=== PATIENT | female | born 1975 | race African-American/Black ===

== ENCOUNTER 2017-12-04 16:38 | Emergency (ER) | payer OTHER ==
[2017-12-04 16:50] VITALS: BP 136/92; PULSE 92; TEMP 98.7; BMI 33.1
[2017-12-04] MEDS ORDERED: IBUPROFEN 400 MG TABLET (FP) PO ONE ×2 (17:25→17:27)
--- NOTE | 2017-12-04 17:26 | PDOC ---
History of Present Illness - General Chief Complaint: Headache Stated Complaint: HEADACHE Time Seen by Provider: 12/04/17 16:57 - History of Present Illness Initial Comments: 12/04/17 17:39 Chief complaint: Headache History of present illness: Recurrent headaches for the past few days, bandlike frontal, not present upon awakening but develop during the day. Admits increased stress. Patient has not taken any medication because "I do not like to take pills". Review of systems: Denies other associated symptoms, neurological or otherwise, including fever/chills, sore throat, cough, chest pain, shortness of breath, abdominal pain, nausea, vomiting, diarrhea, visual or focal neurologic symptoms , unsteadiness of gait. No urinary tract symptoms or abnormal vaginal bleeding or discharge. Denies a possibility of Past medical history: Hypothyroidism on Synthroid. Otherwise no significant medical or surgical problems Social/family history: Patient works in a [employer], is exposed to considerable stress both at work and at home with family. Denies drugs, alcohol, or tobacco. Fully active and without disability. No family history of neurological, cardiac disease, or diabetes. Physical exam: Alert and oriented 3, moderately obese, no acute distress, cheerful and cooperative Afebrile, vital signs normal PERRLA 4 mm, fundi benign with sharp disc margins and good central venous pulsations, no hemorrhages or exudates, no AV nicking. ENT clear. No sinus tenderness Neck supple without bruit mass or nodes. Chest clear CV regular without murmur or gallop Abdomen benign Neurological C2 to 12 intact. Strength full and symmetric. No focal sensory or motor deficits. Gait stable and unimpaired Skin clear, no rash, adequate turgor with mucous membranes Extremities no CCE Impression: Tension headaches, likely due to stress/anxiety. Has not taken any analgesics because of resistance to taking pills, no sign of serious neurologic or infectious disease. Plan: Analgesics, stress reduction techniques discussed, referral to neurologist if no improvement. Fully ambulatory and in no significant pain or other distress upon discharge with to follow-up as recommended. Past History - Past Medical History Allergies/Adverse Reactions: Allergies Allergy/AdvReac Type Severity Reaction Status Date / Time No Known Allergies Allergy Verified 12/04/17 16:45 Home Medications: Ambulatory Orders Ibuprofen 800 mg PO TID PRN #20 tablet 12/04/17 Levothyroxine [Synthroid -] 75 mcg PO DAILY 12/04/17 COPD: No Thyroid Disease: Yes Other medical history: OVARIAN CYSTS - Suicide/Smoking/Psychosocial Hx Smoking History: Never smoked Hx Alcohol Use: No Drug/Substance Use Hx: No Substance Use Type: None *Physical Exam - Vital Signs Last Vital Signs Temp Pulse Resp BP Pulse Ox 98.7 F 92 H 15 136/92 100 12/04/17 16:45 12/04/17 16:45 12/04/17 16:45 12/04/17 16:45 12/04/17 16:45 *DC/Admit/Observation/Transfer Diagnosis at time of Disposition: Headache Qualifiers: Headache type: tension-type Headache chronicity pattern: acute headache Intractability: not intractable Qualified Code(s): G44.209 - Tension-type headache, unspecified, not intractable - Discharge Dispostion Disposition: HOME Condition at time of disposition: Improved Admit: No - Prescriptions Prescriptions: Ibuprofen 800 mg PO TID PRN #20 tablet PRN Reason: Headache - Referrals Referrals: Gregorio Mitchell DO [Staff Physician] - - Patient Instructions Printed Discharge Instructions: DI for Headache Additional Instructions: Rest, fluids, ibuprofen. See neurologist if there is no improvement. Return to ER if symptoms worsen - Post Discharge Activity Forms/Work/School Notes: Back to Work
== END 2017-12-04 18:43 | disposition home or self-care (01) ==
LOC: FER 16:38
DX: G44.209 Tension-type headache, unspecified, not intractable (principal); E07.9 Disorder of thyroid, unspecified
CPT/HCPCS: 99281-25

== ENCOUNTER 2020-08-15 11:11 | Day surgery (SDC) | payer OTHER ==
[2020-08-08 15:16] VITALS: BMI 32.8
[2020-08-15 12:08] VITALS: TEMP 98.7
[2020-08-15] MEDS ORDERED: CEFAZOLIN 1 GM/D5W 1 GM/50 ML BAG IVPB ONE (12:29)
[2020-08-15] MEDS ORDERED: PROPOFOL 20 ML ONE ×2 (12:31→13:42)
[2020-08-15] MEDS ORDERED: MIDAZOLAM HCL 2 MG/2 ML SINGLE DOSE VIAL ONE (12:32)
[2020-08-15] MEDS ORDERED: DEXAMETHASONE SOD PHOSPHATE 4 MG/1 ML VIAL ONE (12:52)
[2020-08-15] MEDS ORDERED: BUPIVACAINE HCL/PF 0.25% (2.5MG/ML) 10 ML VIAL ONE (12:52)
[2020-08-15] MEDS ORDERED: LIDOCAINE HCL 2% (20ML MULTI-DOSE VIAL) ONE (12:52)
[2020-08-15] MEDS ORDERED: DEXAMETHASONE SOD PHOSPHATE/PF 10 MG/ML SDV ONE (12:53)
--- OUTSIDE RECORDS SUMMARY | 2020-08-15 13:15 | XMS ---
:1975 [facility] Care Team Providers Name Role Phone MELODY ENCINAS Unavailable Unavailable MATIAS HUBBARD Unavailable Unavailable KAN BLACK Unavailable Unavailable TEO GARCÍA, [id number] Unavailable Unavailable Veronica Taylor Unavailable Unavailable Veronica Taylor Unavailable Unavailable FÁTIMA PACHECO Unavailable Unavailable DONITA TONY Unavailable Unavailable JACQUES PRINCESS Unavailable Unavailable Re-disclosure Warning The records that you are about to access may contain information from federally- assisted alcohol or drug abuse programs. If such information is present, then the following federally mandated warning applies: This information has been disclosed to you from records protected by federal confidentiality rules (42 CFR part 2). The federal rules prohibit you from making any further disclosure of this information unless further disclosure is expressly permitted by the written consent of the person to whom it pertains or as otherwise permitted by 42 CFR part 2. A general authorization for the release of medical or other information is NOT sufficient for this purpose. The Federal rules restrict any use of the information to criminally investigate or prosecute any alcohol or drug abuse patient.The records that you are about to access may contain highly sensitive health information, the redisclosure of which is protected by Article 27-F of the [facility] Public Health law. If you continue you may haveaccess to information: Regarding HIV / AIDS; Provided by facilities licensed or operated by the [facility] Office of Mental Health; or Provided by the [facility] Office for People With Developmental Disabilities. If such information is present, then the following [facility] mandated warning applies: This information has been disclosed to you from confidential records which are protected by state law. State law prohibits you from making any further disclosure of this information without the specific written consent of the person to whom it pertains, or as otherwise permitted by law. Any unauthorized further disclosure in violation of state law may result in a fine or assisted sentence or both. A general authorization for the release of medical or other information is NOT sufficient authorization for further disclosure. 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 NONE [facility] 1. NONE [facility] 1. NONE [facility] 1. NONE [facility] 1. NONE [facility] 1. NONE [facility] Allergies and Adverse Reactions Type Description Substance Reaction Status Data Source(s ) Drug allergy No Known Allergies No Known [facility] Everywhere Food allergy No Known Food No Known Food [facility] [employer] [facility] Drug allergy No Known Drug No Known Drug [facility] [employer] [facility] Encounters Encounter Providers Location Date Indications Data Source(s ) Outpatient Attender: JUNIOR, 08/11/2020 E78.5 Z01.818 [facility]00 PM N92.6 [facility] HUMAYUNReferrer: MATIAS HUBBARD E78.5 Z01.818 N92.6 Outpatient Attender: WAYNE, 07/06/2019 06:00:00 R92.2 [facility] JAIRONIAMAttender: CHRISTIAN ENCINAS [facility] MARIAAdmitter: Melecio BLACKMReferrer: MELODY ENCINAS R92.2 Outpatient Attender: [id number] 04/22/2019 E55.9 Z00.00 [facility]00 [facility] E89.0 [facility] [id number] Ron GARCÍAReferrer: MATIAS HUBBARD E55.9 Z00.00 E89.0 Outpatient Attender: HAYDEE 04/14/2019 10:26:00 M54.2 [facility] AM [facility] Lacey HANNA: C orporation MATIAS HUBBARD M54.2 Outpatient Attender: DONITA CASTRO-ER 04/11/2019 arm pain [facility] PELOQUINAdmitter: DONITA 03:12:00 PM EDT PELOQUINConsultant: Veronica - 04/11/2019 [place] SKAGGS 04:13:00 PM EDT arm pain Patient discharged. Outpatient Attender: JACQUES 02/16/2019 06:00:00 R92.2 R92.8 [facility] ZVIAdmitter: AM [facility] ZVIReferrer: MELODY ENCINAS R92.2 R92.8 Outpatient Attender: JACQUES 02/02/2019 06:00:00 N64.89 [facility] ZVIAdmitter: JACQUES EDT [facility] ZVIReferrer: Fina HUBBARD orporation MATIAS N64.89 Insurance Providers Payer name Policy type / Policy ID Covered Covered libertarian's Policy Plan Coverage type libertarian ID relationship to Mann Information mann R [id number] S [id number] R [id number] Spouse [id number] Problems, Conditions, and Diagnoses Code Display Name Description Problem Type Effective Data Sour ce(s) Dates N92.6 Irregular IRREGULAR Diagnosis 08/11/2020 [place] menstruation, MENSTRUATION, 04:54:00 PM [facility] unspecified UNSPECIFIED EDT Care [place] Everywhere Z01.818 Encounter for ENCOUNTER FOR Diagnosis 08/11/2020 [facility] other OTHER 04:54:00 PM [facility] preprocedural PREPROCEDURAL EDT Care examination [employer] E78.5 Hyperlipidemia, HYPERLIPIDEMIA, Diagnosis 08/11/2020 [place] unspecified UNSPECIFIED 04:54:00 PM [facility] N61.0 Mastitis without MASTITIS WITHOUT Diagnosis 07/06/2019 [facility] abscess ABSCESS 06:00:00 AM [facility] EDT Care [place] Everywhere N60.32 Fibrosclerosis of FIBROSCLEROSIS OF Diagnosis 07/06/2019 [place] left breast LEFT BREAST 06:00:00 AM [facility] EDT Care [place] Everywhere R92.8 Other abnormal and OTH ABN AND Diagnosis 07/06/[address] [facility] zhou inconclusive INCONCLUSIVE 06:00:00 [facility] findings on FINDINGS ON DX EDT Care diagnostic imaging IMAGING OF BREAST [facility] of breast R92.2 Inconclusive INCONCLUSIVE Diagnosis 07/06/2019 [facility] mammogram MAMMOGRAM 06:00:00 [facility] Z00.00 Encounter for ENCNTR FOR GENERAL Diagnosis 04/22/2019 [place] general adult ADULT MEDICAL EXAM 10:00:00 AM [employer] medical W/O ABNORMAL EDT Care examination FINDINGS [facility] without abnormal findings E55.9 Vitamin D VITAMIN D Diagnosis 04/22/2019 [place] deficiency, DEFICIENCY, 10:00:00 AM [facility] unspecified UNSPECIFIED EDT Care [place] Everywhere M79.602 Pain in left arm PAIN IN LEFT ARM Diagnosis 04/14/2019 [facility] 04:41:00 PM EDT R20.2 Paresthesia of PARESTHESIA OF Diagnosis 04/14/2019 [facility] skin SKIN 04:41:00 PM EDT M54.2 Cervicalgia CERVICALGIA Diagnosis 04/14/2019 [place] 10:26:00 [facility] N64.89 Other specified OTHER SPECIFIED Diagnosis 02/02/2019 [place] disorders of DISORDERS OF 06:00:00 AM [facility] al[facility] breast BREAST EDT Care [facility] Results ID Date Data Source [id number] 08/11/2020 04:05:00 PM EDT [facility] Name Value Range Interpretation Description Data Sup porting Code Source(s) Document(s ) SARS [facility] coronavirus 2 RNA This lab was ordered by [facility] and reported by [facility]. ID Date Data Source [id number] 02/18/2020 12:00:00 AM EDT [facility] Name Value Range Interpretation Code Description Data Maryellen rce(s) Supporting Document(s ) 2019-nCoV [facility] RNA XXX ASAD+probe- Imp This lab was ordered by [facility] and reported by [employer] Procedure
[2020-08-15] MEDS ORDERED: ONDANSETRON 4 MG/2 ML VIAL IVPUSH PRN (13:18)
[2020-08-15] MEDS ORDERED: oxyCODONE HCL 5 MG TABLET PO PRN (13:18)
[2020-08-15] MEDS ORDERED: LACTATED RINGERS SOLUTION 1,000 ML IV SCH (13:30)
[2020-08-15] MEDS ORDERED: ceFAZolin SODIUM 1 GM VIAL ONE (13:39)
[2020-08-15] MEDS ORDERED: LIDOCAINE HCL 2% (50ML VIAL) NR ONE (13:40)
[2020-08-15] MEDS ORDERED: DEXAMETHASONE SOD PHOSPHATE 4 MG/1 ML VIAL IVPUSH ONE (14:14)
[2020-08-15] MEDS ORDERED: BUPIVACAINE HCL/PF 0.25% (2.5MG/ML) 10 ML VIAL IJ ONE (14:14)
[2020-08-15 15:17] VITALS: PULSE 80
[2020-08-15 15:50] VITALS: BP 138/84
--- NOTE | 2020-08-18 16:52 | PATH ---
Surgical Pathology Report Patient Name: EDMUNDO QUIGLEY [facility]. Rec. #: [id number] /Age/Gender: 1975 (Age: 44) / F Account: [id number] Location: [facility] Taken: 08/15/2020 Received: 08/15/2020 Reported: 08/18/2020 Physicians: Rosendo Bolden Specimen(s) Received RIGHT FOOT PLANTAR FIBROMA Clinical History Right foot plantar fibroma Final Diagnosis FOOT, RIGHT, PLANTAR FIBROMA, EXCISION: FIBROMA. Electronically Signed Lexie Reyes M.D. Gross Description Received in formalin labeled "right foot plantar fibroma," is a 1.1 x 0.9 x 0.7 cm redd-yellow soft tissue nodule. The specimen is trisected and entirely submitted in one cassette. /08/16/2020 [facility]08/16/2020
--- NOTE | 2020-08-18 19:27 | OP ---
DATE OF OPERATION: 08/15/2020 PREOPERATIVE DIAGNOSIS: Plantar fibroma, right foot. POSTOPERATIVE DIAGNOSIS: Plantar fibroma, right foot. PROCEDURE: Excision of plantar fibroma right foot. ANESTHESIA: Local with MAC. HEMOSTASIS: Obtained using a pneumatic ankle tourniquet of the right ankle at 250 mmHg. PROCEDURE: With the patient's vital signs noted to be stable, she was brought to the OR and placed on the OR table in the supine position. After general sedation was attained, local anesthesia was administered and attained in the right foot using approximately 8.0 mL of lidocaine 2% plain. Now a sterile orthopedic prepping and draping of the right foot was performed. At this point, the tourniquet was inflated to 250 mmHg. Now a 2.0-cm curvilinear or lazy-S incision was created over the soft tissue nodule in the distal medial plantar arch of the right foot. The skin and subcutaneous tissue were dissected away from the underlying mass using sharp and blunt dissection. At this point, the soft tissue nodule was well visualized and was resected in toto using sharp dissection. Care was made to remove all of this lesion. The area was now flushed with sterile saline. And now the subcutaneous tissues were closed using simple sutures of 4-0 Vicryl. And the skin was closed using a subcuticular stitch of 5-0 Prolene. There were 2 additional simple sutures of 5-0 Prolene that were placed to coapt the incision edges. Postoperative injectables consisting of 1 mL of Marcaine 0.5% plain and 1 mL of dexamethasone phosphate was placed. Sterile compressive dressings were placed, and the tourniquet deflated. Normal capillary filling time was noted instantaneously in all digits of the right foot. Patient tolerated the procedure well. Prognosis is good, and the wound expectancy is clean. FANG MARTINEZ DPM [id number]
== END 2020-08-15 15:45 | disposition home or self-care (01) ==
LOC: FASU 11:11
PROVIDERS: ATTEND Podiatrist
PROC: 0JBQ0ZZ Excision of Right Foot Subcutaneous Tissue and Fascia, Open Approach (ICD-10-PCS; principal; 2020-08-15 13:51)
DX: D21.21 Benign neoplasm of connective and other soft tissue of right lower limb, including hip (principal)
CPT/HCPCS: 84703; 88304-TC